=== PATIENT | male | born 1970 | race Caucasian/White ===

== ENCOUNTER → 2023-11-10 09:40 | Outpatient (REF) | payer OTHER, SELFPAY | LOC: MRI 3T 09:40 | PROVIDERS: ATTENDING PHYSICIAN Family Medicine Sports Medicine | DX: S43.401A Unspecified sprain of right shoulder joint, initial encounter (principal) | CPT/HCPCS: 73221 ==

== ENCOUNTER → 2024-06-29 12:00 | Outpatient (REF) | payer OTHER, SELFPAY | LOC: DHSLP 12:00 | PROVIDERS: ATTENDING PHYSICIAN Internal Medicine; FAMILY PHYSICIAN Family Medicine | DX: G47.19 Other hypersomnia (principal); R06.83 Snoring | CPT/HCPCS: 95800 ==